=== PATIENT | female | born 1940 | race Caucasian/White ===

== ENCOUNTER 2021-03-05 14:52 | Inpatient (IN) | payer OTHER, BC ==
[~2021-03-05] VITALS: Ht 160 cm; Wt 66.9 kg
--- NOTE | 2021-03-05 17:34 | NUR ---
ASSUMED CARE ON ARRIVAL OF PT AT 1655 THIS AFTERNOON. PT FELL AROUND 0100 THIS MORNING AND AGAIN AROUND 0230. PT'S FRIEND TOOK HER TO HOSPITAL IN [place], [place]. XRAY AND CT SHOWING A STABLE FX IN RT HIP. COMPLETED ADDMISSION HX AND EDUCATION ALONG WITH THE SEPSIS SCREENING. ONCOMING RN WILL PERFORM DETAILED ASSESSMENT. PT IS A/OX4 AND IS IN NO PAIN AT THIS TIME. WILL MONITOR AND NOTE ANY CHANGES.
[2021-03-05 17:45] VITALS: BP 174/54
[2021-03-05] MEDS ORDERED: MILK OF MA400 MG/5 M PO (18:28)
[2021-03-05] MEDS ORDERED: SUPER THERAVIT1 EACH PO (18:31)
[2021-03-05 19:29] VITALS: BP 186/81
[2021-03-05] MEDS ORDERED: LOVASTATIN 20 M20 MG PO (19:53)
[2021-03-05] MEDS ORDERED: DILTIAZEM ER180 M2 PO (19:54)
[2021-03-05] MEDS ORDERED: OMEPRAZOLE 20 M20 M1 PO (19:57)
[2021-03-05] MEDS ORDERED: PAXIL10 MG PO ×2 (19:58→20:02)
[2021-03-06 00:49] VITALS: BP 168/67
[2021-03-06] MEDS ORDERED: ST. JOSEPH ASPI81 MG PO (03:12)
--- NOTE | 2021-03-06 03:22 | NUR ---
ADMISSION ASSSESSMENT COMPLETED. PT IS ALERT AND ORIENTED X 4. ICE PARISH PLACE TO R HIP AND R SHOULDER FOR PAIN RELIEF. PT DENIES NEED FOR PAIN MEDS.SCDS IN PLACE. ORTHO CONSULTED, MED REC COMPLETED.SHE APPEARS TO BE IN NO DISTRESS, WILL CONTINUE WITH POC.
[2021-03-06 04:48] VITALS: BP 157/61
[2021-03-06 05:12] LABS: CALCIUM 8.5 mg/dL (8.5-10.1); CREATININE 0.7 mg/dL (0.6-1.0); HEMATOCRIT 38.5 % (37.0-47.0); HEMOGLOBIN 12.8 gm/dL (12.0-15.0); MCH 29.5 pg (26.0-34.0); MCHC 33.2 g/dL (28.0-37.0); POTASSIUM 3.2 mmol/L (3.5-5.1); RBC 4.33 mil/uL (4.20-5.00); RDW 13.6 % (10.5-14.5); WBC 14.2 thou/uL (4.0-11.0)
[2021-03-06 07:25] VITALS: BP 182/73
--- NOTE | 2021-03-06 10:34 | NUR ---
Assumed care of pt at 0700. Pt a&ox4. Pain controlled. Castellon catheter in place. Pt had a CT scan of the right hip. Regular diet. NPO after midnight. Possible surgery tomorrow 03/07. EKG ordered. Call light within reach. Fall precuations in place. Will continue to monitor.
--- NOTE | 2021-03-06 11:44 | NUR ---
Chart review. Possible hip surgery tomorrow at get ct today. Cm visited with fly at bedside, intro to and dcp. She lives home, alone, 4 steps to enter but son might get me at ramp. Live in [place], [place], son lives 5 miles away. Independent, cook, clean, manage own medication. Drive vehicle. Do have cleaning lady that comes 1 x month. Had covid vaccine x 2. PCP Dr Jara. Had about 4 falls in 6m at home. per fly. Education on rehab and home health. Had outpt rehab before and will need training on how to use walker if i need one per patient. She agreeable to rehab if needed at dc. Will cont following as needed for dc needs.
[2021-03-06 16:08] VITALS: BP 154/66
[2021-03-06 20:35] VITALS: BP 154/66
--- NOTE | 2021-03-07 02:39 | NUR ---
ASSESSMENT COMPLETED. PT IS ALERT AND ORIENTED AND VERY PLEASANT. SHE HAS A KENNEDY. NPO AFTER MIDNOC.UA COLLECTED AT THE START OF SHIFT AND WAITING FOR RESULTS. AFEBRILE. DENIES PAIN. WILL CONTINUE WITH POC TILL EOS.
[2021-03-07 04:45] LABS: URINE BILIRUBIN NEGATIVE (Negative); URINE BLOOD 1+ (Negative); URINE CLARITY CLEAR; URINE COLOR YELLOW; URINE GLUCOSE-RANDOM* NEGATIVE (Negative); URINE KETONES TRACE (Negative); URINE LEUKOCYTES-REFLEX TRACE (Negative); URINE NITRITE-REFLEX NEGATIVE (Negative); URINE PROTEIN (DIPSTICK) 1+ (Negative); URINE SPECIFIC GRAVITY 1.025 (1.005-1.035); URINE UROBILINOGEN 0.2 E.U./dl (0.2-1.0)
[2021-03-07 06:26] LABS: BACTERIA-REFLEX 1-9 Few /HPF (None Seen); CASTS None Seen /LPF (None Seen); CRYSTALS None Seen /LPF (None Seen); MUCUS >6 Heavy strn/LPF (None Seen); SQUAMOUS 0-3 Few /LPF (0-3); URINE WBC-REFLEX 6-15 Few /HPF (0-5)
[2021-03-07 06:30] VITALS: BP 179/71
--- NOTE | 2021-03-07 07:34 | EKG ---
[address] [address] ELECTROCARDIOGRAM REPORT Name: VITO DOMINGUEZ Room #: 448-P ADM IN M.R.#: [id number] Admission: 03/05/21 Attend Phys: Deric Pa MD Discharge: Date of : 36 Report #: [id number] [facility] Test Date: 2021-03-06 Test Time: 16:51:08 Pat Name: VITO DOMINGUEZ Department: Room: 448 P Gender: F [employer] Supervisor: VÍCTOR : [id number] Requested By: Deric Pa Order Number: [id number] : Anoop Teran Measurements Intervals [place] Rate: 71 P: 4 ME: 161 QRS: -28 QRSD: 86 T: 5 QT: 374 QTc: 407 Interpretive Statements Sinus rhythm Atrial premature complex Left ventricular hypertrophy No previous ECG available for comparison Electronically Signed On 03-07-2021 7:34:14 CDT by Anoop Teran [email or web address] <ELECTRONICALLY SIGNED> By: Anoop Teran MD, [facility] 03/07/21 0734 [id number] Anoop Teran MD, FACC /EPI
--- NOTE | 2021-03-07 08:54 | O ---
[facility] [place] [address] OPERATIVE REPORT Name: VITO DOMINGUEZ Room #: 448-P [facility] IN M.R.#: [id number] Admission: 03/05/21 Attend Phys: Deric Pa MD Discharge: Date of : 38 Report #: [id number] THIS REPORT FOR: cc: FAM - Family physician unknown FAM - Family physician unknown Dmitry Henao MD ~ PREOPERATIVE DIAGNOSIS: Right femoral neck fracture. POSTOPERATIVE DIAGNOSIS: Right femoral neck fracture. PROCEDURE: Percutaneous screw fixation, right femoral neck fracture. SURGEON: Dmitry Henao MD INDICATIONS: This 80-year-old female fell at home injuring the right hip. X-rays and CT scan reveal an essentially nondisplaced high femoral neck fracture with very slight valgus position. No other significant bony injuries are identified. We discussed treatment options including nonsurgical management or percutaneous screw stabilization or hip hemiarthroplasty. She prefers to proceed with screw fixation. DESCRIPTION OF PROCEDURE: The patient was taken to the operating room where she was placed under brief general anesthetic, she was positioned on the fracture table. The right hip and thigh were meticulously prepped and draped. C-arm was used to visualize the femur fracture. The fracture seems to be in anatomic alignment. A lateral skin incision was made. Three guidewires were placed, extending into the head about 1 cm below the subchondral bone. Their positions seemed to be acceptable. Three cannulated cancellous screws were then placed over the guidewires. These were advanced with C-arm visualization and seemed to have satisfactory purchase and position. The fracture seemed to remain in unchanged anatomic position and possibly compressed slightly as the screws were firmly tightened down. The hip was gently manipulated and no sense of crepitus or movement was noted. The fracture seems to be in good alignment and well stabilized. The wound was copiously irrigated. Good hemostasis was confirmed. The subcutaneous tissues were closed with 2-0 Monocryl. The skin was closed with skin britany. A sterile dressing was applied. The patient was awakened and returned to recovery room in good condition. <ELECTRONICALLY SIGNED> By: Dmitry Henao MD 03/07/21 0854 [id number] 0744 Dmitry Henao MD /nt
--- NOTE | 2021-03-07 09:20 | HC ---
[facility] [place] [address] [address] CONSULTATION Name: VITO DOMINGUEZ Room #: 448-P ADM IN M.R.#: [id number] Admission: 03/05/21 Attend Phys: Deric Pa MD Discharge: Date of : 38 Report #: [id number] THIS REPORT FOR: cc: FAM - Family physician unknown FAM - Family physician unknown Dmitry Henao MD ~ HISTORY OF PRESENT ILLNESS: This 80-year-old female states that she is generally active and living independently in her own home. She has had several falls recently. She had another fall at her home two days ago. She was unable to stand or walk. She was seen at her local hospital where x-rays and CT scan were performed. These revealed a nondisplaced very slightly impacted fracture, high in the cervical neck. No other abnormalities were identified. She is referred here for further treatment. At the time of my evaluation, initially, she is awake and alert and oriented. She is just a bit confused about when she arrived, she seems to understand the situation well. She denies any areas of discomfort aside from the right hip. The right hip is uncomfortable with flexion or rotation. However, there is no obvious deformity and no shortening. She has a reasonably good range of motion consistent with a stable femoral neck fracture. There is only slight bruising over the upper lateral thigh. No other abnormalities are identified. The outside x-rays and CT scan were reviewed. We discussed treatment options including nonsurgical management or screw fixation or hemiarthroplasty. She notes that she is somewhat unstable and is concerned she may have difficulty maintaining good protection and nonweightbearing. She is afraid she may have further falls in the future. She does not feel that nonsurgical management is the best option. We discussed either percutaneous screw stabilization or hemiarthroplasty. Initially, she was somewhat uncertain about these options and was concerned that the outside CT scan may not show the entire picture. She requested a repeat CT scan, I felt this was appropriate to reassess alignment and make a more informed decision about either screw fixation or hemiarthroplasty. A new CT scan was performed here. This again reveals a minimally displaced very slightly impacted femoral neck fracture in very slight valgus position. We discussed this once again and she prefers to avoid hemiarthroplasty, but would like to go ahead with percutaneous screw fixation of this fracture. That surgery is scheduled for the morning of 03/07. I would anticipate she will be able to advance activity using a walker with at least partial weightbearing and then advancing to full weightbearing. I have explained that she will probably need a lot of assistance either at home or in an extended care facility for the coming four to six weeks. [place] [address] CONSULTATION Name: VITO DOMINGUEZ Room #: 448-P [facility] IN M.R.#: [id number] Admission: 03/05/21 Attend Phys: Deric Pa MD Discharge: Date of : 36 Report #: [id number] probably request an extended care facility as she does not have a lot of family assistance at home. <ELECTRONICALLY SIGNED> By: Dmitry Henao MD 03/07/21 0920 0740 [id number] Dmitry Henao MD /nt
[2021-03-07 10:00] VITALS: BP 155/58
--- NOTE | 2021-03-07 10:31 | NUR ---
Assumed care of pt at 0700. Pt a&o4. Surgery this am. Surgery successful. Per scrap breaker, surgeon talked to pt's son and updated. Dressing c/d/i. Castellon catheter in place. IVF infusing. RA. PT/OT. Pain controlled. Call light within reach. Fall precautions in place. Will continue to monitor.
--- NOTE | 2021-03-07 12:29 | NUR ---
cm returned phone call to geni martino. Education on acute rehab and skilled rehab. son and fly both agree with either dcp. Anticipated dc on wednesday. Referral sent to [facility] skilled rehab in [place] and 5n consult. FWW will possible be needed for dc ready for home.
[2021-03-07 16:00] VITALS: BP 158/62
[2021-03-07 22:00] VITALS: BP 174/77
--- NOTE | 2021-03-08 05:42 | NUR ---
PT UTILIZED CALL LIGHT REQUESTED, SLEPT THROUGH THE NIGHT COMPLIANT WITH CARE, HAD ELEVATED BP, NEW ORDER RECEIVED ONE TIME BP MED ADMINISTERED, NO ADVERSE REACTION NOED WILL CONTINUE TO MONITOR PT, DRESSING INTACT NO DRAINAGE NOTED.
[2021-03-08 07:47] VITALS: BP 179/78
--- NOTE | 2021-03-08 10:31 | NUR ---
Assumed care of pt at 0700. Pt a&ox4. Pain controlled with prn pain medications. Dressing c/d/i. Potassium level 2.9 this am. Provider aware. New orders noted. Up to the chair with physical therapy. 20lbs weight bearing on LLE. Call light within reach. Fall precautions in place. Will continue to monitor.
[2021-03-08] MEDS ORDERED: LISINOPRIL5 MG PO (11:00)
[2021-03-08] MEDS ORDERED: HYDROCODON-ACE1 EAC7 PO (11:00)
[2021-03-08 11:01] VITALS: BP 170/69
[2021-03-08 11:07] VITALS: BP 170/69
--- NOTE | 2021-03-08 11:38 | NUR ---
Pt READY FOR D/C PER DR. NAAV. PLANNING TO ADMIT Pt TO 5N REHAB LATER TODAY.
== END 2021-03-08 15:34 | DRG 482 ==
LOC: 4S 14:52
PROVIDERS: Nurse Practitioner Family; ADMIT Hospitalist; ATTEND Hospitalist
PROC: 0QH634Z Insertion of Internal Fixation Device into Right Upper Femur, Percutaneous Approach (ICD-10-PCS; principal; 2021-03-07)
DX: S72.011A Unspecified intracapsular fracture of right femur, initial encounter for closed fracture (principal); F32.9 Major depressive disorder, single episode, unspecified; W18.30XA Fall on same level, unspecified, initial encounter; I10 Essential (primary) hypertension; D72.829 Elevated white blood cell count, unspecified; I48.0 Paroxysmal atrial fibrillation; E87.6 Hypokalemia; E78.5 Hyperlipidemia, unspecified; K21.9 Gastro-esophageal reflux disease without esophagitis; R29.6 Repeated falls; Z20.822 Contact with and (suspected) exposure to COVID-19; Z88.6 Allergy status to analgesic agent; Z88.5 Allergy status to narcotic agent; Z88.2 Allergy status to sulfonamides; Z91.048 Other nonmedicinal substance allergy status; Z79.899 Other long term (current) drug therapy; Z90.49 Acquired absence of other specified parts of digestive tract; Z90.710 Acquired absence of both cervix and uterus; Z98.49 Cataract extraction status, unspecified eye; Y93.89 Activity, other specified; Y92.89 Other specified places as the place of occurrence of the external cause; Y99.8 Other external cause status
CPT/HCPCS: 10102; 50010; 50101; 50386; 51412; 51538; 52304; 53400; 53404; 56525; 57092; 62110; 62900; 70005

== ENCOUNTER 2021-03-08 11:17 | Inpatient (IN) | payer OTHER, BC ==
[~2021-03-08] VITALS: Ht 160 cm; Wt 66.8 kg
[~2021-03-08 11:17] MED LIST: DILTIAZEM ER180 M2 PO; HYDROCODON-ACE1 EAC7 PO; LISINOPRIL5 MG PO; LOVASTATIN 20 M20 MG PO; MILK OF MA400 MG/5 M PO; OMEPRAZOLE 20 M20 M1 PO; PAXIL10 MG PO; ST. JOSEPH ASPI81 MG PO; SUPER THERAVIT1 EACH PO
--- NOTE | 2021-03-08 16:01 | NUR ---
1530 ADMITTED TO ROOM 506. PATIENT IS ALERT AND ORIENTEDX4. PATIENT GREY'S, EXPLOSIVE SPECIALIST ARE EQUAL. LUNGS ARE CLEAR AND DEMINISHED. ABD IS SOFT WITH BSX4. PATIENT HAS KENNEDY CATHETER TO DD, DRAINING JEANIE COLORED URINE. FALL AND SAFETY PROTOCOLS IN PLACE. DENIES PAIN AT THIS TIME. PT/OT/ST EVALS TO BE DONE TOMMARROW. PATIENT HAS S.L. IN HER LEFT WRIST. PATIENT WEARS GLASSES AND HAS DENTURES. CALL LIGHT IN REACH. RIGHT HIP DRESSING IS DRY AND INTACT. NO DRAINAGE NOTED. PATIENT HAS SOME BRUSING ON HER RIGHT ARM FROM THE FALL AT HOME. WILL CONTINUE TO MONITER.
[2021-03-08 16:24] VITALS: BP 179/57
[2021-03-08 18:04] VITALS: BP 131/59
[2021-03-08 19:10] VITALS: BP 130/57
--- NOTE | 2021-03-08 19:41 | NUR ---
Alert and orientated X4. Calm, cooperative and compliant. Took meds whole with liquid. States she has pain 6/10 in her R chest where "I hit the coffee table when I fell." Describes it as pressure when she takes a deep breath. Hypertensive 170s systolic. Initially resistant to pain medication but was accepting when explained that decreasing her pain may help her BP. BP decreased to 130s systolic and pain decreased to 4/10. Breath sounds clear. Reg HR auscultated. Color pink with brisk capillary refill and palpable peripheral pulses. Clear yellow urine per potts to DD. Active bowel sounds over soft, rounded abdomen. States last BM was on Saturday 03/03 but received Miralax around lunch time. 20 g jelco per L forearm, flused with NS, site soft and flat. Per report 2nd dose of KCL IV was not given and still needed to be infused. No order. Dr. Pa notified. 20 meq KCL given PO per order. Dressing per R hip dry and intact.
--- NOTE | 2021-03-09 01:58 | NUR ---
PT ASSESSMENT COMPLETED AND VSS. MEDS GIVEN ORDERED AND WELL TOLERATED. FALL PRECAUTIONS IN PLACE. RIGHT HIP DRESSING DRY AND INTACT. PT DENIES PAIN AT THIS TIME. SCDS ON. ASST WITH REPOSITION FOR COMFORT. SLEEPING WELL. WILL CONTINUE TO MONITOR FREQUENTLY.
[2021-03-09 05:08] LABS: CALCIUM 8.4 mg/dL (8.5-10.1); CREATININE 0.6 mg/dL (0.6-1.0)
[2021-03-09 05:20] LABS: HEMATOCRIT 37.3 % (37.0-47.0); HEMOGLOBIN 12.4 gm/dL (12.0-15.0); MCH 29.5 pg (26.0-34.0); MCHC 33.1 g/dL (28.0-37.0); MCV 89.1 fL (80.0-100.0); RBC 4.18 mil/uL (4.20-5.00); RDW 13.5 % (10.5-14.5); WBC 9.3 thou/uL (4.0-11.0)
[2021-03-09 05:24] LABS: POTASSIUM 4.6 mmol/L (3.5-5.1)
[2021-03-09 08:10] VITALS: BP 141/59
--- NOTE | 2021-03-09 15:27 | NUR ---
ASSUMED CARE OF PT AT 0700 THIS MORNING. PT HAD HIP REPAIR ON RT. PT HAS BEEN A/OX4, ABD WITH TAPE AND ICE PK. ASSESSMENTS NOTED IN CHART AND OTHERWISE UNREMARKABLE. FALL PRECAUTIONS IN PLACE. CALL LIGHT AND OTHER NEEDS ARE IN REACH. MEDS AND TX GIVEN NEEDED AND SCHEDULED. WILL MONITOR AND NOTE ANY CHANGES.
[2021-03-09 19:51] VITALS: BP 149/56
--- NOTE | 2021-03-10 01:14 | NUR ---
PT ASSESSMENT COMPLETED AND VSS. MEDS GIVEN ORDERED AND WELL TOLERATED. FALL PRECAUTIONS IN PLACE. KENNEDY DRAINING LARGE AMOUNT OF YELLOW URINE. DRSG TO R HIP DRY AND INTACT. PT GIVEN ICE PACK FOR COMFORT. SCDS ON. DENTURES CLEAN AND IN CUP. ASST WITH REPOSITION FOR COMFORT. PRN PAIN MEDICATION WORKING WELL. PT SLEEPING. WILL CONTINUE TO MONITOR FREQUENTLY.
[2021-03-10 07:15] VITALS: BP 156/67
--- NOTE | 2021-03-10 09:51 | NUR ---
Chart review. Cm familiar with fly, worked with her on acute. s/p right hip. 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 She lives alone, independent, 4 steps to enter. No stairs inside the home. Cooks, cleans, does have cleaning lady that comes 1 x per month. Manage own medication and drives. Son gunner lives close. No DME. PCP Dr andrade. Lives in [place], [place]. Will cont following as needed for dc needs.
--- NOTE | 2021-03-10 12:22 | NUR ---
Nutrition: pt admitted S/P ORIF right hip. Received consult stating "diet choices". Pt reports decreased appetite for a few days, po averaging 48% past 3 days. Ate 90% of breakfast this morning. Stable weights. Pt c/o no BM x 7 days and lactulose started. Also on Daily MVI. Feels po will improve once pt has BM. Folate/B [address] educated pt on menu ordering if desired. Refusing supplements. Low nutrition risk.
[2021-03-10 12:28] LABS: FOLIC ACID 48.7 ng/mL (8.6-58.9)
--- NOTE | 2021-03-10 16:32 | NUR ---
PT ALERT AND ORIENTED TIMES FOUR. VSS. PT DENIES PAIN/SOA. PT TOLERATES MEDS AND MEALS. PT WORKED WELL WITH PT/OT TODAY. PT PROGRESSING TOWRADS POC GOALS.
[2021-03-10 19:36] VITALS: BP 148/56
--- NOTE | 2021-03-11 01:00 | NUR ---
ASSUMED CARE APPROX 0 EVENING 03/10. PT LYING IN BED WITH HEAD OF BED ELEVATED AT CHANGE OF SHIFT DOZING OFF AND ON. PT AWOKE TO TAKE HS MEDS WITH WATER TOLERATING WELL. DRESSING TO RIGHT HIP C/D/I. PT STATED SHE WAS TIRED FROM THERAPY. PT APPEARS TO BE SLEEPING SOUNDLY. BED ALARM ON AND CALL LIGHT IN REACH. WILL CONTINUE TO MONITOR.
[2021-03-11 07:40] VITALS: BP 149/46
--- NOTE | 2021-03-11 08:36 | NUR ---
PT SITTING UP IN W/C THIS AM. PT HAS KENNEDY TO DD WITH YELLOW URINE. PT LUNGS CLEAR. PT HAS HYPOACTIVE BS. PT STATED NO BM FOR 5 DAYS. PT STATED SHE TAKES LAXATIVES AT HOME EVERY OTHER DAY. PT HAS DRESSING TO RT HIP THAT IS INTACT. PT TOOK MEDS THIS AM WITH THIN WATER. PT DIDN'T WANT TO EAT MUCH BREAKFAST.
--- NOTE | 2021-03-11 10:00 | NUR ---
PT WAS IN THERAPY ROOM AND VOMITED. PT TAKEN BACK TO ROOM.
--- NOTE | 2021-03-11 10:28 | NUR ---
PT SITTING UP IN CHAIR WITH HEAD ON BEDSIDE TABLE. PT IS PALE TO HER FACE. ASSISTED PT TO BED, PT HOPPING ON RT FOOT DUE TO WT LIMITATION OF 20 POUNDS. PT RECIEVED DULCOLAX 10MG SUPP. PT LYING ON LEFT SIDE.
--- NOTE | 2021-03-11 11:50 | NUR ---
PT DID HAVE SMEAR RESULTS FROM SUPP. CLAMPED KENNEDY AT THIS TIME FOR VOIDING TRIAL.
--- NOTE | 2021-03-11 12:52 | NUR ---
Team meeting, recommendation: Complaints of nausea, constipation. weight restrictions of right leg. voiding trial. lower assist with dressing, transfers partial mod assist. will need to go home at wheelchair level. son to do daily checks. Son will need training with therapy prior to dc. Already been given life alert information prior to acute rehab. dc 03/21 (pt, ot, nursing).
--- NOTE | 2021-03-11 17:04 | NUR ---
PT REFUSED TO EAT DINNER R/T NAUSEA. WHEN GOING TO ROOM TO OFFER ANTIEMETIC, PT RESTING WITH EYES CLOSED.
--- NOTE | 2021-03-11 17:18 | NUR ---
UNCLAMPED KENNEDY, PT DIDN'T HAVE ANY SENSATION TO VOID. LET ABEL ASSISTANT REFINERY OPERATOR KNOW ABOUT NOT FEELING TO VOID. WILL ALLOW BLADDER TO DRAIN AND RECLAMP IN 20-30 MIN.
[2021-03-11 19:46] VITALS: BP 186/83
[2021-03-11 20:58] VITALS: BP 171/86
--- NOTE | 2021-03-11 23:45 | NUR ---
PT ASSESSMENT COMPLETED AND BP ELEVATED. CONTACTED SHALE MINER BLASTING SO AND FOLLOWED ORDERS. EXTRA DOSE OF LISINOPRIL 5 MG GIVEN AT HS. NAUSEA THIS EVENING AND MEDICATION HELPFUL. SCDS ON. IS ENC. DENTURES CLEANED. DRESSING ON HIP CHANGED AND C/D/I. PT SLEEPING WELL. DENIES NEEDS. WILL CONTINUE TO MONITOR FREQUENTLY.
[2021-03-12 07:15] VITALS: BP 134/66
--- NOTE | 2021-03-12 10:25 | NUR ---
ASSUMED CARE AT 0700. PATIENT IS ALERT AND ORIENTED X4. PATIENT GREY'S, TOOL DESIGN ENGINEER ARE EQUAL. PATIENT HAS 20LB WT BEARING STATUS ON HER RIGTH HIP. PATIENT IS UP WITH ASSIST OF 1 STAFF AND GAIT BELT TO W/C. UP IN THE W/C FOR MEALS. LUNGS ARE CLEAR AND DEMINISHED, ABD IS SOFT WITH BSX4. PATIENT HAS HAD 2 BMS THIS A.M. PATIENT C/O NAUSEA. MEDICATED WITH PRN ANTI-EMETIC. FALL AND SAFETY PROTOCOLS IN PLACE. C/O PAIN IN HER RIGHT SHOULDER AND RIGHT RIB AREA, RIGHT HIP. MEDICATED WITH PRN PAIN MED. CONTINUES TO PROGRESS SLOWLY TOWARDS D/C GOALS. WILL CONTINUE TO MONITER.
[2021-03-12 19:39] VITALS: BP 119/52
--- NOTE | 2021-03-12 21:53 | NUR ---
ASSUMED CARE OF PT AT 1915. PT IS A&OX4. IS ON ROOM AIR. DENIES PAIN IN RIGHT HIP. DRSG C/D/I. HIP PRECAUTIONS CONTINUED THIS SHIFT. PT IS STABLE. IS UP WITH MAX ASSIST OF 2, GB, WALKER. FALL PRECAUTIONS & HOURLY ROUNDING CONTINUED THIS SHIFT. LABS & VITALS REVIEWED. PT IS CURRENTLY IN BED SLEEPING. CALL LIGHT WITHIN REACH. WILL CONTINUE TO MONITOR.
[2021-03-13 08:00] VITALS: BP 120/55
--- NOTE | 2021-03-13 13:07 | NUR ---
PT ALERT AND ORIENTED TIMES FOUR. VSS. PT DENIES PAIN/SOA. PT TOLERATES MEDS AND MEALS. PT WORKED WELL WITH PT/OT THIS SHIFT. PT PROGRESSING TOWRADS POC GOALS.
[2021-03-13 19:38] VITALS: BP 125/45
[2021-03-13 22:30] VITALS: BP 118/62
--- NOTE | 2021-03-13 23:48 | NUR ---
PT ASSESSMENT COMPLETED AND VSS. MEDS GIVEN ORDERED AND WELL TOLERATED. FALL PRECAUTIONS IN PLACE. KENNEDY DRAINING MODERATE AMOUNT OF URINE. ASST WITH REPOSITION FOR COMFORT. SCDS ON. DENTURES CLEANED AND SOAKING. DRSG ON RIGHT HIP DRY AND INTACT. PT WANTED MIRLAX TONIGHT BUT REFUSED HER LACTULOSE. SLEEPING WELL AT THIS TIME. CLAMPING KENNEDY ON AND OFF. WILL CONTINUE TO MONTIOR
[2021-03-14 07:04] VITALS: BP 137/57
--- NOTE | 2021-03-14 09:41 | NUR ---
PT WORKING WITH THERAPY THIS AM. PT USING W/C FOR FAR DISTANCE AND WALKER FOR SHORT DISTANCES, PT HOPPS ON LEFT LEG. PT KENNEDY WAS UNCLAMPED FROM FEELING THE NEED TO VOID. PT DRESSING TO RT HIP IS D/I. PT HAS INA THAT ARE INTACT, INCISION IS WELL APPROXIMATED AND NO SIGNS OF REDDNESS. PT STATED PAIN TO RT HIP IS LOW ABOUT A 3. PT LUNGS CLEAR, NO COUGH. NEW DRESSING APPLIED TO RT HIP AT THIS TIME.
--- NOTE | 2021-03-14 12:33 | NUR ---
D/C KENNEDY AT THIS TIME. PT HAD 150ML OF TEA COLOR URINE IN BAG. PT TOLERATED WELL.
--- NOTE | 2021-03-14 18:17 | NUR ---
CHECKED ON PT TO SEE IF SHE VOIDED. PT THOUGHT SHE MIGHT HAVE BEING INCON. TOOK OFF BRIEF PANTS, DIDN'T SEE BUT A SMALL AREA OF URINE, PLACED PURWICK IN PLACE TO MONITOR OUTPUT, PT STATED AT HOME SHE VOIDS EVERY HOUR, THAT WAS WHAT SHE WAS DOING WHEN SHE FELL WAS GOING TO BATHROOM.
[2021-03-14 19:00] VITALS: BP 109/51
--- NOTE | 2021-03-15 01:52 | NUR ---
assumed care approx 1900 evening 03/14. pt lying in bed with head of bed elevated resting alert and oriented x4, pleasant and cooperative. pt stated she feels she is making good progress with therapy. purwick catheter set up. pt denies complaints. bed alarm on and call light in reach. will continue to monitor.
[2021-03-15 08:00] VITALS: BP 132/50
--- NOTE | 2021-03-15 08:28 | NUR ---
PT WORKING WITH THERAPY IN BATHROOM. PT IS WT BEARING LIMITED TO RT LEG. PT DRESSING D/I TO RT HIP. PT TOOK MEDS THIS AM WITH THIN WATER. PT HAD BM YESTERDAY. PT USED PUREWICK LAST NIGHT FOR INCON. DURING THE EVENING. PT LUNGS CLEAR. ABD IS SOFT AND HYPOACTIVE BS.
--- NOTE | 2021-03-15 10:05 | NUR ---
ADM ZOFRAN 4MG PO FOR NAUSEA. AFTER THERAPY PT FELT NAUSEATED TO STOMACH, WITHOUT VOMITING.
--- NOTE | 2021-03-15 16:02 | NUR ---
ASSISTED PT TO BATHROOM. PT HAD X2 STOOLS THIS SHIFT, PT ALSO VOIDED, PT WAS INCON. OF URINE IN BRIEF. PT ABLE TO TRANSFER BACK TO W/C AND BACK TO BED. PLACED PUREWICK ON PT AT THIS TIME. PT DENIES ANY NAUSEA. PT WOULD LIKE TO HAVE NAUSEA PILL PRIOR TO EATING, PER DR. MAGDALENO SUGGESTION.
--- NOTE | 2021-03-15 16:42 | NUR ---
ADM ZOFRAN 4MG PO FOR PRE DINNER. PT WANTED TO SEE IF IT WOULD HELP FOR PRE NAUSEA.
[2021-03-15 18:55] VITALS: BP 117/44
--- NOTE | 2021-03-15 23:32 | NUR ---
PT C/O RT HEEL PAIN, AND LEG HAS BEEN OFF-LOADED WITH A PILLOW THIS EVENING. PT REPORTS THAT SHE IS NOT HAVING ANY HIP PAIN. AND IS ABLE TO TURN HERSELF IN BED. SHE TOOK MELATONIN THIS EVENING AFTER C/O INSOMNIA AND HS MESSAGING SNOW REMOVING SUPERVISOR BEV RIZZO FOR A SLEEPING AID. PT HAS THE PUREWIC IN PLACE AT PRESENT TIME. NO OTHER C/O'S VOICED.
[2021-03-16 07:15] VITALS: BP 140/50
[2021-03-16 08:45] VITALS: BP 140/50
[2021-03-16 19:06] VITALS: BP 127/61
--- NOTE | 2021-03-16 19:09 | NUR ---
FOR N/V DR. MAGDALENO CHANGED ZOFRAN TO Q4 AND ADDED MECLIZINE.
--- NOTE | 2021-03-17 02:30 | NUR ---
assumed care approx 1900 evening 03/16. pt alert and oriented x4, pleasant and cooperative. pt denied nausea at hs and pt has been sleeping soundly. pt took hs meds with water tolerating well. bed alarm on and call light in reach. will continue to monitor.
[2021-03-17 08:00] VITALS: BP 129/60
--- NOTE | 2021-03-17 10:22 | NUR ---
ASSUMED CARE AT 0700. PATIENT IS ALERT AND ORINETED X4. PATIENT GREY'S, CREAMERY WORKER ARE EQUAL. LUNGS ARE CLEAR AND DEMINISHED. PATIENT IS UP WITH ASSIST OF 1 STAFF AND GAIT BELT TO BATHROOM. PATIENT HAS RIGHT HIP DRESSING THAT IS DRY AND INTACT. ABD IS SOFT WITH BSX4. PATIENT HAD BM THIS AM. FALL AND SAFETY PROTOCOLS IN PLACE. DENIES PAIN AT THIS TIME. CONTINUES TO PROGRESS SLOWY TOWARDS D/C GOALS. LABS ORDERED FOR THE A.M. WILL CONTINUE TO MONITER.
--- NOTE | 2021-03-17 12:05 | NUR ---
Nutrition followup: pt continues on rehab unit S/P ORIF right hip. Appetite is fair but overall improving now that pt is having regular BMs. Average intake 43% last 12 meals, 50-80% of meals past 2 days. Pt is ordering meals and continues to refuse supplements. Folate WNL, B12 borderline low-supplement added. Noted no weight taken since 03/08. Requested nsg to obtain today as alarm on bed prevented RD from taking weight. Continue as low risk.
--- NOTE | 2021-03-17 15:14 | NUR ---
spoke with fly to see if she was feeling better about going home at dc vs going [facility]. this is all new so going to try do more for myself to get stronger, son gunner coming to visit tomorrow. CM left message with geni martino as well. Will cont following as needed for dc needs.
[2021-03-17 19:05] VITALS: BP 115/42
[2021-03-18 04:52] LABS: ABSOLUTE NEUTROPHILS 6.7 thou/uL (1.4-8.2); BASOPHILS 0.8 % (0.0-2.0); EOSINOPHILS 2.9 % (0.0-3.0); HEMATOCRIT 34.8 % (37.0-47.0); HEMOGLOBIN 11.6 gm/dL (12.0-15.0); LYMPHOCYTES 19.8 % (24.0-44.0); MCH 29.7 pg (26.0-34.0); MCHC 33.4 g/dL (28.0-37.0); MCV 88.9 fL (80.0-100.0); MONOCYTES 10.6 % (1.0-8.0); PLATELET COUNT 403 thou/uL (150-400); POLYS 65.9 % (36.0-66.0); RBC 3.92 mil/uL (4.20-5.00); WBC 10.2 thou/uL (4.0-11.0)
[2021-03-18 05:09] LABS: CALCIUM 8.4 mg/dL (8.5-10.1); CREATININE 0.6 mg/dL (0.6-1.0); POTASSIUM 3.9 mmol/L (3.5-5.1)
--- NOTE | 2021-03-18 05:39 | NUR ---
PATIENT CARE WAS RESUMED AT 1900. SHE IS ALERT AND ORIENTED. ABLE TO VERBALISE PAINS AND CONCERNS. LUNGS ARE CLEAR,BS ARE CACTIVE X 4 QUADS. SHE IS CONTINIET OF BOWEL AND BLADDER. SHE DENIES PAINS. TOOK HER MEDS WHOLE, BED IS LOW, LOCKED AND ALARMED. SHE IS A MODERATE ASSIT WITH CARE. CONTINUE CARE AND MONITOR
[2021-03-18 08:00] VITALS: BP 138/52
--- NOTE | 2021-03-18 13:58 | NUR ---
Team meeting, recommendation: wheelchair level for home dc with britany. mid to mod cognition and memory. Assist with medication with 24hr intermitted assist, hh vs snf. dc 03/21
[2021-03-18 19:24] VITALS: BP 130/50
--- NOTE | 2021-03-19 03:59 | NUR ---
assumed care approx 1900 evening 03/18. pt alert and oriented x4, pleasant and cooperative. pt assisted up to w/c and into bathroom to void before hs. purwick catheter set up at . pt called out for hs meds. pt appears to be sleeping soundly. bed alarm on and call light in reach. will continue to monitor.
[2021-03-19 07:15] VITALS: BP 146/58
--- NOTE | 2021-03-19 13:41 | NUR ---
Spoke with [facility], they can accept for skilled therapy. Will need covid test. Also will need [id number]. Spoke with fly and son gunner, passed on information that after 30 days of skilled if she needs more than would be out of pocket r/t her 2nd federal insurance plan.
[2021-03-19 14:41] LABS: URINE BILIRUBIN NEGATIVE (Negative); URINE BLOOD 1+ (Negative); URINE CLARITY CLOUDY; URINE COLOR YELLOW; URINE GLUCOSE-RANDOM* NEGATIVE (Negative); URINE KETONES NEGATIVE (Negative); URINE NITRITE-REFLEX NEGATIVE (Negative); URINE PROTEIN (DIPSTICK) NEGATIVE (Negative); URINE SPECIFIC GRAVITY 1.025 (1.005-1.035)
[2021-03-19 14:42] LABS: URINE LEUKOCYTES-REFLEX 3+ (Negative)
[2021-03-19 17:20] LABS: BACTERIA-REFLEX >30 Many /HPF (None Seen); MUCUS 4-6 Moderate strn/LPF (None Seen); SQUAMOUS 0-3 Few /LPF (0-3); URINE RBC 1-2 Rare /HPF (NONE SEEN); URINE WBC-REFLEX >25 Many /HPF (0-5)
[2021-03-19 19:55] VITALS: BP 138/49
--- NOTE | 2021-03-20 01:50 | NUR ---
ASSESSED AT START OF SHIFT 0. PT RESTING IN BED. DENIES PAIN. REQUESTED MIRALAX TONIGHT. EVENING MEDS GIVEN AND PT DIEGO IT WELL. PT ANTICIPATING DISCHARGE WEDNESDAY. FALL PREC IN PLACE. BRIEF C/D/I. WILL CONT TO MONITOR TILL EOS. PT CALLS OUT FOR MEDS.
[2021-03-20 08:00] VITALS: BP 151/56
[2021-03-20] MEDS ORDERED: OXYBUTYNIN 5 MG5 M2 PO (08:02)
[2021-03-20] MEDS ORDERED: LISINOPRIL5 MG PO (08:02)
[2021-03-20] MEDS ORDERED: VITAMIN B-12500 MCG PO (08:02)
[2021-03-20] MEDS ORDERED: MIRALAX17 GM PO (08:02)
[2021-03-20] MEDS ORDERED: LACTULOSE20 GM/30 M PO (08:02)
[2021-03-20] MEDS ORDERED: MELATONIN5 M1 PO (08:02)
[2021-03-20] MEDS ORDERED: BAYER CHEWABLE81 MG PO (08:02)
[2021-03-20] MEDS ORDERED: CEFUROXIME500 MG PO (08:04)
--- NOTE | 2021-03-20 18:49 | NUR ---
ASSUMED C/O PT AT 0700 THIS MORNING. PT UP AND WORKING WITH OT AT THIS TIME. PT CALLS OUT FOR PILLS REQUIRED. INA TO R HIP REMOVED, INCISION IS WITHOUT DRAINAGE AND IS WELL APPORXIMATED. PT TO DC TOMORROW TO SNF. PT TOLERATING REGULAR DIET. PT DOES COMPLAIN OF INTERMITTENT NAUSEA. ZOFRAN GIVEN ORDERD. WILL CONTNIUE TO MONITOR.
[2021-03-20 20:00] VITALS: BP 150/56
[2021-03-20 20:10] VITALS: BP 129/64
--- NOTE | 2021-03-21 02:08 | NUR ---
DARIANA IS ALERT AND ORIENTED. SHE IS A MAX ASSIST WITH CARE. SHE AMBULATES WITH W/C. SHE HAD HER MEDS WHOLE. SHE IS ABLE TO VERBALIZE HER CONCERN SHE IS CONTINENT OF BOWEL AND BLADDER.BED IS LOW, LOCKED AN ALARMED. SHE DENIES ANY PAINS AND CALLIGHT AT REACH CONTINUE CARE AND MONITOR.
[2021-03-21 08:00] VITALS: BP 144/52
[2021-03-21 08:31] VITALS: BP 144/52
--- NOTE | 2021-03-21 09:48 | NUR ---
Chart copy requested, spoke with son gunner and he was not notified by [facility] that their transport could not bring her today. 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 [id number] sent to [facility] skilled. bedside nurse to call report [phone].
[2021-03-21] MEDS ORDERED: LISINOPRIL5 MG PO (10:28)
[2021-03-21] MEDS ORDERED: MIRALAX17 GM PO (10:28)
[2021-03-21] MEDS ORDERED: MELATONIN5 M1 PO (10:28)
[2021-03-21] MEDS ORDERED: SUPER THERAVIT1 EACH PO (10:28)
[2021-03-21] MEDS ORDERED: DILTIAZEM ER180 M2 PO (10:28)
[2021-03-21] MEDS ORDERED: VITAMIN B-12500 MCG PO (10:28)
[2021-03-21] MEDS ORDERED: OXYBUTYNIN 5 MG5 M2 PO (10:28)
[2021-03-21] MEDS ORDERED: LOVASTATIN 20 M20 MG PO (10:28)
[2021-03-21] MEDS ORDERED: LACTULOSE20 GM/30 M PO (10:28)
[2021-03-21] MEDS ORDERED: PAXIL10 MG PO ×2 (10:28)
[2021-03-21] MEDS ORDERED: BAYER CHEWABLE81 MG PO (10:28)
[2021-03-21] MEDS ORDERED: OMEPRAZOLE 20 M20 M1 PO (10:28)
[2021-03-21] MEDS ORDERED: CEFUROXIME500 MG PO (10:28)
--- NOTE | 2021-03-21 11:13 | NUR ---
TODAY THIS PT HAS BEEN D/C. SHE HASN'T HAD ANY PAIN THIS MORNING AND SHE HAD STABLE VS. SHE TOOK HER MEDICATIONS WITH NO DIFFICULTY AND WAS ABLE TO DO TRANSFERS WITH LITTLE HELP.
--- NOTE | 2021-03-21 13:42 | H ---
[facility] [place] [address] HISTORY AND PHYSICAL Name: VITO DOMINGUEZ Room #: 506-1 [facility] IN M.R.#: [id number] Admission: 03/08/21 Attend Phys: Dmitry Callahan MD Discharge: 03/21/21 Date of : 36 Report #: [id number] THIS REPORT FOR: cc: LACEY - Family physician unknown FAM - Family physician unknown Dmitry Callahan MD ~ DATE OF SERVICE: 03/08/2021 HISTORY OF PRESENT ILLNESS: The patient is an 80-year-old white female who was admitted today for acute inpatient rehabilitation. The patient was originally admitted to [facility] on 03/05/2021 as a direct admit from [facility] after a fall at home. She had right hip pain and inability to ambulate. She was found to have a right femoral neck fracture. Orthopedics was consulted and on 03/07/2021, she underwent ORIF and is allowed 20 pounds weightbearing right lower extremity. Right shoulder x-ray was negative for acute process. She was noted to have significant hypokalemia, warranting IV supplementation with history of hypertension and paroxysmal atrial fibrillation. She is needing another dose of IV potassium, which nursing is arranging. The patient has been admitted for acute in-hospital inpatient rehabilitation. PAST MEDICAL HISTORY: Includes hypertension, hyperlipidemia, concussion x 2 due to falls, right great toe fracture, GERD, depression, paroxysmal atrial fibrillation, cataracts, tubal ligation, hysterectomy, cholecystectomy, tonsillectomy. MEDICATIONS: Please see the full medication listing. ALLERGIES: She does have multiple allergies as noted. SOCIAL HISTORY: Lives alone, but has a supportive son to help as needed. She has a couple of steps to enter then all one level. She was independent with ADLs and IADLs, premorbidly. Did not use any assistive device. REVIEW OF SYSTEMS: Did not offer any current complaints of chest pain, shortness of breath or abdominal discomfort. PHYSICAL EXAMINATION: GENERAL: The patient was seen earlier. She was in no distress. VITAL SIGNS: Temperature was 97.5, pulse 61, respirations 20, blood pressure 178/79. Facies appeared symmetric. HEENT: Benign. CHEST: Sounded clear to auscultation. CARDIAC: Regular rate and rhythm. ABDOMEN: Bowel sounds positive, nontender. GENITOURINARY AND RECTAL: Deferred. EXTREMITIES: Hip dressing is dry. No calf swelling. No significant distal [address] [address] HISTORY AND PHYSICAL Name: VITO DOMINGUEZ Room #: 506-1 [facility] IN M.R.#: [id number] Admission: 03/08/21 Attend Phys: Dmitry Callahan MD Discharge: 03/21/21 Date of : 36 Report #: [id number] lower extremity edema. She was pleasant, alert, appears to be of good historian. She has gotten up in therapies and has been min assist coming to stand and hopping a short distance mod assist with the limited weightbearing as noted. She is limited to less than 20 pounds right lower extremity. ASSESSMENT: An 80-year-old female with the following problem list: 1. Right femoral neck fracture, status post ORIF on 03/07/2021. Less than 20 pounds weightbearing. 2. Hypokalemia with IV supplementation is underway. 3. Hypertension. 4. Paroxysmal atrial fibrillation. 5. Depression. 6. Gastroesophageal reflux disease. PLAN: The patient is admitted for acute in-hospital inpatient rehabilitation. Please see the above noted and current functional status. As far as risk of complication, she has some above noted medical comorbidities. Measurable functional goals would be for her to become modified independent with transfers, mobility and ADLs, so she can return back home. Prognosis is reasonably good with estimated length of stay probably at least 10 to 14 days. Potential barriers would include her decreased functional mobility levels and ADL level as well as the above noted comorbidities. The patient meets diagnostic criteria for an acute in-hospital inpatient rehabilitation stay. She meets the medical necessity criteria. She does have the tolerance for therapies and has appropriate discharge goals back to the home setting. <ELECTRONICALLY SIGNED> By: Dmitry Callahan MD 03/21/21 1342 09 28 Dmitry Callahan MD /nt
--- NOTE | 2021-03-21 13:42 | PLAN ---
[facility] [place] [address] REHAB UNIT PLAN OF CARE Name: VITO DOMINGUEZ Room #: 506-1 [facility] IN M.R.#: [id number] Admission: 03/08/21 Attend Phys: Dmitry Callahan MD Discharge: 03/21/21 Date of : 36 Report #: [id number] THIS REPORT FOR: cc: FAM - Family physician unknown FAM - Family physician unknown Dmitry Callahan MD ~ DATE OF SERVICE: 03/10/2021 PROGRESS NOTE/REHAB PLAN OF CARE HISTORY OF PRESENT ILLNESS: The patient is seen back today in followup. She is pleasant, in good spirits. Temperature is 97.9, pulse 62, respirations 19, blood pressure is 149/56. The patient is alert, good historian. Facies are symmetric. Hip dressing is in place and appears dry. There is no calf swelling. She is min assist sit to stand, min assist to ambulate 8 feet with a front-wheeled walker essentially, hopping as far as keeping weightbearing less than 20 pounds on the right lower extremity. She is being evaluated in OT as far as basic ADL issues and working on maximizing independence. ASSESSMENT: 1. Right femoral neck fracture, status post reduction internal fixation on 03/07/2021, less than 20 pounds weightbearing. 2. Hypokalemia, necessitating IV supplementation. Potassium has normalized now from 2.9 up to 4.6. 3. Hypertension. 4. Paroxysmal atrial fibrillation. 5. Depression. 6. Gastroesophageal reflux disease. PLAN: The overall plan of care is based on the pre-admit screen and information garnered from therapy assessments. 1. Estimated length of stay is probably 10-14 days pending progress. 2. Medical prognosis is reasonably good. 3. Anticipated interventions includes the interdisciplinary acute inpatient rehabilitation program. 4. Anticipated functional outcomes would be for the patient to become modified independent with transfers, mobility and ADLs, so she can return back to the home setting. 5. Discharge destination would be back to the home setting where she lives alone, but does have a supportive son who is involved. 6. Expected therapy by discipline includes PT and OT 1-1/2 hours per day each 5 days a week throughout the duration of the acute inpatient rehabilitation stay. ADDENDUM: The patient's prognosis for significant practical improvement within a reasonable period of time appears good. Given the patient's complex medical condition and risk of further medical complication, rehabilitation services [address] [address] REHAB UNIT PLAN OF CARE Name: VITO DOMINGUEZ Room #: 506-1 [facility] IN .R.#: [id number] Admission: 03/08/21 Attend Phys: Dmitry Callahan MD Discharge: 03/21/21 Date of : 36 Report #: [id number] could not be safely provided at a lower level of care such as a fdc facility. <ELECTRONICALLY SIGNED> By: Dmitry Callahan MD 03/21/21 1342 0922 1110 Dmitry Callahan MD /nt
== END 2021-03-21 10:45 | DRG 536 ==
PROVIDERS: Nurse Practitioner; ADMIT Physical Medicine & Rehabilitation; ATTEND Physical Medicine & Rehabilitation
DX: S72.011A Unspecified intracapsular fracture of right femur, initial encounter for closed fracture (principal); E87.6 Hypokalemia; I48.0 Paroxysmal atrial fibrillation; F32.9 Major depressive disorder, single episode, unspecified; K59.00 Constipation, unspecified; E53.8 Deficiency of other specified B group vitamins; E83.42 Hypomagnesemia; Z20.822 Contact with and (suspected) exposure to COVID-19; E78.5 Hyperlipidemia, unspecified; D72.829 Elevated white blood cell count, unspecified; G31.84 Mild cognitive impairment of uncertain or unknown etiology; Z66 Do not resuscitate; R33.9 Retention of urine, unspecified; K21.9 Gastro-esophageal reflux disease without esophagitis; Z90.49 Acquired absence of other specified parts of digestive tract; W18.39XA Other fall on same level, initial encounter; Y93.89 Activity, other specified; Y92.89 Other specified places as the place of occurrence of the external cause; Y99.8 Other external cause status; Z90.710 Acquired absence of both cervix and uterus; Z98.49 Cataract extraction status, unspecified eye; Z88.6 Allergy status to analgesic agent; Z88.2 Allergy status to sulfonamides; Z88.8 Allergy status to other drugs, medicaments and biological substances; Z23 Encounter for immunization
CPT/HCPCS: 10112